=== PATIENT | female | born 1980 | race Caucasian/White ===

== ENCOUNTER 2016-11-01 13:20 | Emergency (ER) | payer OTHER ==
--- NOTE | 2016-11-01 15:12 | ED Physician Documentation ---
PD HPI SKIN - Stated complaint Stated Complaint: RED BUMP - Chief complaint Chief Complaint: Laceration - History obtained from History obtained from: Patient - History of Present Illness Timing - onset: Other (She was at her doctor's a few months ago and mentioned a painless lump on the back of the right shoulder. It sounds like it was thought to be a lipoma. 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 - Past Surgical History Past Surgical History: No - Present Medications Home Medications: Ambulatory Orders Medication Instructions Recorded Confirmed Sulfamethoxazole/Trimethoprim 1 each PO BID 7 Days 11/01/16 [Sulfamethoxazole-Tmp Ds Tablet] - Allergies Allergies/Adverse Reactions: Allergies Allergy/AdvReac Type Severity Reaction Status Date / Time No Known Drug Allergies Allergy Verified 11/01/16 13:26 - Social History Does the pt smoke?: No Smoking Status: Never smoker Does the pt drink ETOH?: No Does the pt have substance abuse?: No - Immunizations Immunizations are current?: Yes - POLST Patient has POLST: No PD ED PE NORMAL - Vitals Vital signs reviewed: Yes - General General: Alert and oriented X 3, No acute distress - Derm Derm: Other (On the posterior superior right shoulder there is an inflamed cyst , suspect sebaceous cyst, about 3 cm in diameter. Good range of motion of the shoulder.) - Neuro Neuro: Alert and oriented X 3, Normal speech - Psych Psych: Normal mood, Normal affect Results - Vitals Vitals: Vital Signs - 24 hr 11/01/16 13:23 Temperature 36.9 C Heart Rate 79 Respiratory 16 Rate Blood Pressure 117/76 O2 Saturation 100 Oxygen O2 Source Room air Procedures - Abscess I&D (location) R shoulder Preparation: Chlorhexadine, Lidocaine 1% Incision: Incised with scalpel, Purulent drainage (no sebaceous material, just pus), Loculations broken, Irrigated, Packed, Culture obtained Other: Pt tolerated well, Antibiotic prescribed Departure - Departure Disposition: 01 Home, Self Care Clinical Impression: Abscess of right shoulder Condition: Good Record reviewed to determine appropriate education?: Yes Instructions: ED Abscess IandD Prescriptions: Sulfamethoxazole/Trimethoprim [Sulfamethoxazole-Tmp Ds Tablet] 1 each PO BID 7 Days Comments: Schedule a wound check with your doctor in 2 days for recheck and packing removal. Return sooner if worse. We are performing a wound culture, the results should be done in 48-72 hours. If antibiotic change is necessary we will call you. Return if worse in the meantime, especially if he develop increased pain, fevers, cannot keep down the medication. Otherwise follow-up with your physician in approximately 2-3 days.
[2016-11-01] MEDS ORDERED: BUFFERED LIDOCAINE 10 ML SYRINGE ONE (15:17)
[2016-11-01 15:59] VITALS: BP 109/71
== END 2016-11-01 15:57 | disposition home or self-care (01) ==
LOC: ED 13:20
DX: L02.413 Cutaneous abscess of right upper limb (principal); M79.7 Fibromyalgia; G62.9 Polyneuropathy, unspecified
CPT/HCPCS: 10060; 87070; 87205; 99282; 99283

== ENCOUNTER 2016-11-03 14:58 | Emergency (ER) | payer OTHER ==
--- NOTE | 2016-11-03 15:10 | ED Physician Documentation ---
PD HPI WOUND RECHECK - Stated complaint Stated Complaint: WOUND CHECK - Histroy obtained from History obtained from: Patient - History of Present Illness Location: Other (I&D on the back of the right shoulder 2 days ago, grew out normal skin arron. Could not get a timely appointment with her physician for recheck. No fevers.) Review of Systems Constitutional: denies: Fever, Chills GI: reports: Reviewed and negative : reports: Reviewed and negative PD PAST MEDICAL HISTORY - Past Medical History Neuro: Headache/migraine Musculoskeletal: Fibromyalgia - Past Surgical History Past Surgical History: No - Present Medications Home Medications: Ambulatory Orders Medication Instructions Recorded Confirmed Sulfamethoxazole/Trimethoprim 1 each PO BID 7 Days 11/01/16 [Sulfamethoxazole-Tmp Ds Tablet] - Allergies Allergies/Adverse Reactions: Allergies Allergy/AdvReac Type Severity Reaction Status Date / Time No Known Drug Allergies Allergy Verified 11/01/16 13:26 - Social History Does the pt smoke?: No Smoking Status: Never smoker Does the pt drink ETOH?: No Does the pt have substance abuse?: No - Immunizations Immunizations are current?: Yes - POLST Patient has POLST: No PD ED PE NORMAL - Vitals Vital signs reviewed: Yes - General General: Alert and oriented X 3, No acute distress - Extremities Extremities: Other (Abscess on the back of the right shoulder, slightly gaping, did not need repacking after packing removal. Minimal surrounding cellulitis or drainage.) - Neuro Neuro: Alert and oriented X 3, Normal speech - Psych Psych: Normal mood, Normal affect Results - Vitals Vitals: Oxygen O2 Source Room air Departure - Departure Disposition: 01 Home, Self Care Clinical Impression: Abscess of right shoulder Condition: Good Record reviewed to determine appropriate education?: Yes Comments: Call your doctor to arrange a follow-up appointment, make the next available appointment. In the interim, return anytime if worse or if new symptoms develop.
[2016-11-03 15:11] VITALS: BP 105/73
== END 2016-11-03 15:12 | disposition home or self-care (01) ==
LOC: ED 14:58
DX: L02.413 Cutaneous abscess of right upper limb (principal)
CPT/HCPCS: 99281; 99283